=== PATIENT | female | born 1965 | race Two or more races ===

== ENCOUNTER 2020-09-30 05:20 | Day surgery (SDC) | payer OTHER ==
[~2020-09-30 05:20] MED LIST: SIMVASTATIN20 MG PO
[2020-09-30] MEDS ORDERED: PERCOCET 5-3251 EACH PO (08:56)
== END 2020-09-30 11:25 | disposition home or self-care (01) ==
LOC: CIR.AMB 05:20
PROVIDERS: ATTEND Surgery
DX: D35.1 Benign neoplasm of parathyroid gland (principal); Z20.822 Contact with and (suspected) exposure to COVID-19